=== PATIENT | male | born 1990 | race Caucasian/White ===

== ENCOUNTER 2021-02-07 20:33 | Emergency (ER) | payer OTHER, SELFPAY ==
[2021-02-07 20:40] VITALS: BP 135/88; PULSE 113; RESP 14; TEMP 37; O2SAT 96
[2021-02-07] MEDS: FAMOTIDINE 20 MG TABLET 40 MG PO (21:04)
[2021-02-07] MEDS: EPINEPHrine HCL INJ 1 MG/ML AMPUL 0.3 MG IM (21:04)
[2021-02-07] MEDS: diphenhydrAMINE HCl INJ 50 MG/ML VIAL IM (21:04)
[2021-02-07] MEDS: DEXAMETHASONE 4 MG TABLET 12 MG PO (21:04)
--- NOTE | 2021-02-07 21:38 | ED.SKABFB ---
HPI - Skin/Abscess/Foreign Bdy General Source: patient Mode of arrival: ambulatory Limitations: no limitations History of Present Illness HPI narrative: Patient comes in with urticaria rash all over his chest and back. This has been ongoing for the past 3 hours and associated with itching. He does not know what precipitated this as he has no known allergies. He has not taken any medications to attempt to clear this. Rash is small hives, all over chest and back mostly, but also on the extremities. Rash sould be rated as moderately severe, ongoing for the last 3 hours. Nothing at home, prior to arrival made this better or worse. Changing his shirt did not help. No other associated signs or symptoms. No other modifying factors MD complaint: rash Onset (ago): hour(s) Tetanus up to date: yes Location: generalized Severity: moderate Quality: pruritic Pain Consistency: constant Relieving factors: none Exacerbating factors: none Context: other (unknown cause) Associated symptoms: denies other symptoms Treatments prior to arrival: none Related Data Allergies Allergy/AdvReac Type Severity Reaction Status Date / Time No Known Allergies Allergy Verified 02/07/21 20:45 Review of Systems Constitutional: Constitutional: Reports no additional constitutional complaints Eyes: Eyes: Reports no additional eye complaints ENT: Reports system reviewed and no additional complaints, except as documented Cardiovascular: Cardiovascular: Reports no additional cardiovascular complaints Respiratory: Respiratory: Reports no additional respiratory complaints Gastrointestinal: Gastrointestinal: Reports no additional gastrointestinal complaints Genitourinary: Genitourinary: Reports no additional male genitourinary complaints Musculoskeletal: Musculoskeletal: Reports no additional musculoskeletal complaints Integumentary/Breasts: Skin/Breast: Reports system reviewed and no additional complaints, except as docu Neurologic: Reports system reviewed and no additional complaints, except as documented Psychiatric: Psychiatric: Reports no additional psychiatric complaints Endocrine: Endocrine: Reports no additional endocrine complaints Hematologic/Lymphatic: Hematologic/Lymphatic: Reports no additional hematologic/lymphatic complaints Allergic/Immunologic: Allergic/Immunologic: Reports no additional allergic/immunologic complaints PMFSH Past Medical History Medical History No significant medical problems Surgical History Surgical History (Updated 02/08/21 @ 03:07 by Edouard Garvey MD) No significant past surgical history Family History Family History Other No significant family history Social History Social History (Updated 02/08/21 @ 03:08 by Edouard Garvey MD) Smoking status: Never smoker Alcohol use details: rare minimal alcohol use Exam Const: General: no acute distress Orientation/consciousness: patient oriented x3 HENMT: Head: normal to inspection Ears: external ears normal General nose exam: Normal external nose present Mouth: Yes Normal oral and palatal mucosa present Throat: posterior oropharynx normal Eyes: Conjunctivae: conjunctivae normal Neck: Neck: normal visual inspection and no lymphadenopathy Chest: Other: Diffuse hives to chest and back, and to a lesser extent on extremities Resp: Effort & Inspection: normal respiratory effort Auscultation: clear to auscultation bilaterally Cardio: Rate: regular rate Rhythm: regular rhythm GI: GI Palp: Yes Soft to palpation (nontender) Back/Spine/Pelvis: Back: no CVA tenderness Skin: General skin exam: normal color Neuro: General: patient oriented x3 and moves all extremities Extrem: General: normal to inspection Psych: Appearance: grossly normal Mental Status: mental status grossly normal Thought content: Yes Normal thought content present
[2021-02-07 21:44] VITALS: PULSE 110; RESP 18; O2SAT 98
== END 2021-02-07 21:45 | disposition home or self-care (01) ==
PROVIDERS: Emergency Provider Emergency Medicine
DX: L50.9 Urticaria, unspecified (principal)
CPT/HCPCS: 96372; 99283; 99284; A9270; J0171; J1200; J8540

== ENCOUNTER 2021-10-15 18:19 | Emergency (ER) | payer OTHER, SELFPAY ==
[2021-10-15 18:36] VITALS: BP 134/80; PULSE 78; RESP 16; TEMP 37.5; O2SAT 100
--- NOTE | 2021-10-15 18:50 | ED.URI ---
HPI - URI/Sore Throat General Chief Complaint: Upper Respiratory Infection Stated Complaint: Fever/bodyaches/alberto Time Seen by Provider: 10/15/21 18:50 Source: patient and family History of Present Illness HPI Narrative: Patient presents with a 1 day history of fever body aches and headache. No shortness of breath and no chest pain. Patient states he has an appointment in the morning with [facility] in the [facility] for a PCR COVID-19 test. Patient requests a flu test and a strep test at this present. Patient reports normal appetite normal activity normally healthy individual. MD elicited complaint: fever, cough, sore throat and nasal congestion Related Data Allergies Allergy/AdvReac Type Severity Reaction Status Date / Time No Known Allergies Allergy Verified 02/07/21 20:45 Review of Systems Review of Systems: CONSTITUTIONAL: Denies chills, or sweats. Reports fever and generalized body aches EYES: Denies visual changes, redness, or discharge. ENT: Denies otalgia. Reports nasal congestion runny nose and sore throat CARDIOVASCULAR: Denies chest pain, palpitations, or edema. RESPIRATORY: Denies dyspnea. Reports occasional cough GASTROINTESTINAL: Denies abdominal pain, nausea, vomiting, or diarrhea. GENITOURINARY: Denies dysuria or hematuria. SKIN: Denies rash or itching. MUSCULOSKELETAL: Denies back pain, joint pain, or myalgia. Reports generalized body aches NEUROLOGIC: Denies headache, numbness, or weakness. PSYCHIATRIC: Denies anxiety or depression. PMFSH Past Medical History Medical History (Updated 10/15/21 @ 18:52 by KWAKU Bullock) No significant medical problems Surgical History Surgical History (Updated 02/08/21 @ 03:07 by Edouard Garvey MD) No significant past surgical history Family History Family History Other No significant family history Social History Social History (Updated 02/08/21 @ 03:08 by Edouard Garvey MD) Smoking status: Never smoker Alcohol use details: rare minimal alcohol use Comments At time of signature, agree with nursing past medical, surgical, social and family history. There is no relevant family history pertinent to the presenting complaint Exam Narrative: The patient is a well-developed, well-nourished in no acute distress. SKIN: Skin is warm and dry without erythema, swelling or exudate. There is good turgor. No tenting. HEAD: Atraumatic. Normocephalic. No temporal or scalp tenderness. EYES: Moist and bright. Sclera and conjunctivae normal. No discharge. PERRLA. Extraocular motions intact. Gross visual acuity intact. EARS: Pinna is normal shape and contour. Clear external auditory canals. TM pearly brandt with good cone of light, no erythema or suppuration. Bilateral cerumen noted no gross hearing deficit. NOSE: pink, moist mucosa with good air movement. Clear rhinorrhea without nasal flaring. Septum midline. Mouth: moist mucous membranes. THROAT; mild erythema noted to posterior oropharynx with moderate postnasal drainage. Without exudate or ulceration.. Uvula midline. Normal movement of soft palate. NECK: Supple and nontender with full range of motion without discomfort. No meningeal signs. LUNGS: Equal and bilateral breath sounds without wheezes, rales or rhonchi. CHEST: The chest wall is without retractions or use of accessory muscles. HEART: Has a regular rate and rhythm without murmur, gallops, click or rub. ABDOMEN: Soft, nontender with positive active bowel sounds. No rebound tenderness. EXTREMITIES: Without cyanosis, clubbing or edema. Equal 2+ distal pulses and 2 second capillary refill noted. NEUROLOGIC: alert, active, . The patient moves all extremities with normal muscle strength. Normal muscle tone is noted. Normal coordination is noted. NO focal neurological findings noted. Course Course Level of Care: Express Care Visit Vital Signs Vital signs: Vital Signs Temperature 37.5 C 10/04
== END 2021-10-15 19:13 | disposition home or self-care (01) ==
PROVIDERS: Emergency Provider Nurse Practitioner Family
DX: J06.9 Acute upper respiratory infection, unspecified (principal); B34.9 Viral infection, unspecified
CPT/HCPCS: 87804; 99213; G0463

== ENCOUNTER 2022-05-26 20:32 | Emergency (ER) | payer OTHER, SELFPAY ==
--- NOTE | ~2022-05-26 | XR_ITS ---
EXAM: XR hip RT min 2V DATE: 05/26/2022 21:16 HISTORY: RT hip pain NKI . COMPARISON: None available. FINDINGS: Normal mineralization. No fracture or dislocation. No lytic or blastic lesion. Joint space s are maintained. No erosion or periosteal change. Soft tissues within normal limits. IMPRESSION: No acute osseous finding in the right hip. Reviewed, dictated and finalized at location K.
[2022-05-26 20:35] VITALS: BP 138/87; PULSE 108; RESP 14; TEMP 38; O2SAT 97
--- NOTE | 2022-05-26 20:42 | ED.LOWEXIN ---
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 no history of trauma -- numbness and tingling radiating from the right lateral thigh down to cough and sometimes to the toes -- fever with a T-max of 103? -- sore throat H/O of IVDA many yrs ago. Onset (ago): day(s) ( started yesterday) Injury: Right: hip Severity: moderate Relieving factors: immobilization Exacerbating factors: movement Other symptoms: other ( fever, sore throat) Related Data Home Medications Medication Instructions Recorded Confirmed No Home Medications 05/26/22 05/26/22 Allergies Allergy/AdvReac Type Severity Reaction Status Date / Time No Known Allergies Allergy Verified 05/26/22 20:47 Review of Systems Review of Systems: All systems reviewed & are unremarkable except as noted in HPI and below Constitutional: Constitutional: Reports as per HPI, Reports no additional constitutional complaints and Reports fever(s) Eyes: Eyes: Reports as per HPI and Reports no additional eye complaints ENT: Reports system reviewed and no additional complaints, except as documented, Reports as per HPI and Reports sore throat Cardiovascular: Cardiovascular: Reports as per HPI and Reports no additional cardiovascular complaints Respiratory: Respiratory: Reports as per HPI and Reports no additional respiratory complaints Gastrointestinal: Gastrointestinal: Reports as per HPI and Reports no additional gastrointestinal complaints Genitourinary: Genitourinary: Reports no additional male genitourinary complaints Musculoskeletal: Musculoskeletal: Reports no additional musculoskeletal complaints and Reports as per HPI Comments: right hip pain Integumentary/Breasts: Skin/Breast: Reports system reviewed and no additional complaints, except as docu and Reports as per HPI Neurologic: Reports system reviewed and no additional complaints, except as documented and Reports as per HPI Psychiatric: Psychiatric: Reports no additional psychiatric complaints and Reports as per HPI Endocrine: Endocrine: Reports no additional endocrine complaints and Reports as per HPI Hematologic/Lymphatic: Hematologic/Lymphatic: Reports no additional hematologic/lymphatic complaints and Reports as per HPI Allergic/Immunologic: Allergic/Immunologic: Reports no additional allergic/immunologic complaints and Reports as per HPI [facility] Past Medical History Medical History No significant medical problems Surgical History Surgical History No significant past surgical history Family History Family History Other No significant family history Social History Social History Smoking status: Never smoker Alcohol use details: rare minimal alcohol use Exam Const: General: ill appearing Orientation/consciousness: patient oriented x3 Limitations: no limitations HENMT: Head: normal to inspection Ears: external ears normal General nose exam: Normal external nose present Face and sinus: normal facial exam Mouth: Yes Normal oral and palatal mucosa present Throat: posterior oropharynx normal Eyes: Conjunctivae: conjunctivae normal Pupils: Equal, round and reactive pupils present EOM: EOMs intact bilaterally Direct Ophthalmoscopy: no photophobia Neck: Neck: normal visual inspection, no lymphadenopathy and no meningeal signs Chest: Chest palpation & inspection: normal inspection of the chest Resp: Effort & Inspection: normal respiratory effort Auscultation: diminished lung sounds
[2022-05-26] MEDS: KETOROLAC 30 MG/ML VIAL (*BKC) IM (21:06)
[2022-05-26 21:30] LABS: Hematocrit 45.6 % (40.0-54.0); Hemoglobin 15.8 g/dL (14.0-18.0); Mean Corpuscular HGB Conc 34.6 g/dL (32.0-36.0); Mean Corpuscular Hemoglobin 31.4 pg (27.0-31.0); Mean Corpuscular Volume 90.7 fL (78.0-102.0); Mean Platelet Volume 9.1 fl (8.7-11.0); Platelet Count Result 338 K/mm3 (150-420); Red Blood Count 5.03 M/mm3 (4.70-6.10); Red Cell Distribution Width 12.3 % (11.6-14.4); White Blood Count 7.2 K/mm3 (4.8-10.8)
[2022-05-26 21:44] LABS: Prothrombin Time 11.3 Seconds (9.50-12.10)
[2022-05-26 21:48] LABS: Add Urine Microscopic? YES; Appearance Urine Clear (Clear); Bilirubin Urine Negative (Negative); Blood Urine Negative (Negative); Color Urine Light Yellow (Yellow); Glucose Urine UA Negative (Negative); Ketones Urine Negative (Negative); Leukocyte Esterase Ur Negative (Negative); Nitrate Urine Negative (Negative); Protein Urine Negative (Negative); Specific Grav Ur 1.015 (1.010-1.020); pH Urine 7.5 (5.0-8.0)
[2022-05-26 21:51] LABS: Lactic Acid Reflex 1.4 mmol/L (0.4-2.0)
[2022-05-26 21:53] LABS: Bacteria Urine Trace /hpf; RBC Urine 0-2 /hpf (0-2); WBC Urine 0-3 /hpf (0-3)
[2022-05-26 21:58] LABS: Strep Group A RT-PCR Negative (Negative)
[2022-05-26 21:58] LABS: Alanine Aminotransferase 194 U/L (16-63); Albumin Level 4.1 g/dL (3.4-5.0); Alkaline Phosphatase 96 U/L (46-116); Anion Gap 6 mmol/L (8-16); Aspartate Amino Transferase 60 U/L (15-37); Bilirubin,Total 0.4 mg/dL (0.00-1.00); Blood Urea Nitrogen 8 mg/dL (7-18); Calcium 8.8 mg/dL (8.5-10.1); Carbon Dioxide 28 mmol/L (21-32); Chloride 103 mmol/L (98-108); Estimated CRCL calculation 86 ml/min; Estimated Glomerular Filt Rate > 60; Glucose 103 mg/dL (70-99); Osmolality Calculated 282 mOsm/kg (285-295); Potassium 3.5 mmol/L (3.5-5.1); Sodium 137 mmol/L (136-145); Total Protein 7.6 g/dL (6.4-8.2)
[2022-05-26 21:59] LABS: Band Neutrophils Percent 0 % (0-6); Basophils Absolute Manual 0.07 K/mm3 (0-0.1); Basophils Percent Manual 1 % (0-1); Eosinophils Percent Manual 0 % (1-6); Lymphocytes Absolute Manual 2.23 K/mm3 (1.1-4.5); Lymphocytes Percent Manual 31 % (18-44); Monocytes Absolute Manual 0.72 K/mm3 (0.1-0.90); Monocytes Percent Manual 10 % (3-9); Neutrophils Absolute Manual 4.17 K/mm3 (1.3-6.7); Neutrophils Percent Manual 58 % (46-73); Platelet Estimate Adequate (Adequate); Total Cells Counted 100
[2022-05-26 22:08] LABS: SARS-CoV-2 RNA PCR Positive (Negative)
[2022-05-26 22:25] VITALS: BP 123/59; PULSE 100; RESP 16; TEMP 36.9; O2SAT 100
== END 2022-05-26 22:35 | disposition home or self-care (01) ==
PROVIDERS: Emergency Provider Internal Medicine Critical Care Medicine
DX: U07.1 COVID-19 (principal); M25.551 Pain in right hip
CPT/HCPCS: 73502; 80053; 81001; 83605; 85025; 85610; 87651; 96372; 99283; C9803; J1885; U0003; U0005

== ENCOUNTER 2023-06-30 03:02 | Emergency (ER) | payer OTHER, SELFPAY ==
--- NOTE | ~2023-06-30 | CT_ITS ---
EXAMINATION: CT abdomen pelvis w con DATE: 06/30/2023 04:12 INDICATION: Low abdominal pain. Nausea. TECHNIQUE: Computed tomography (CT) of the abdomen and pelvis was performed with 100 mL Omnipaque 350 intravenous contrast. Automated exposure control and iterative reconstruction technique were employe d. The dose-length product was 314.37 mGy-cm. COMPARISON: None. FINDINGS: The visualized portions of the lung bases are clear without pneumonia or pleural effusion. The heart size is normal. No pericardial effusion. The liver, gallbladder, spleen, pancreas, adrenal glands, and left kidney are normal. There is a 5 mm cyst in right kidney. There are no dilated loops of bowel. The appendix is normal. There is prominent fat in the inguinal canals that may be hernias. There are no pathologically enlarged lymph nodes. There is no free intraperitoneal fluid. There is mi ld lumbar spondylosis. IMPRESSION: 1. Prominent fat in the inguinal canals that may be hernias. Reviewed, dictated and finalized at location E.
[2023-06-30 03:02] VITALS: BP 159/117; PULSE 57; RESP 10; TEMP 36.8; O2SAT 100
--- NOTE | 2023-06-30 03:19 | ED.ABDPAIN ---
HPI - Abdominal Pain General Chief Complaint: Abdominal Pain Stated Complaint: stomach pain Time Seen by Provider: 06/30/23 03:19 History of Present Illness HPI narrative: Patient is a 33 year old male with no PMH here with abdominal pain. He notes that the abdominal pain has been present for 2 days. The pain is located near the umbilicus and to the left side, aching in nature, currently 7/10. He notes that he has been taking ibuprofen for pain at home, last dose at 1999, with some relief of symptoms. The pain woke him up twice from sleep tonight so he came in to get evaluated. He has had some associated nausea, no vomiting. No fever or chills. He notes that he has had similar pain to this once in the past, during the pandemic, and he did not get seen for it and it eventually went away on its own. He notes a very small bowel movement just prior to coming in. No blood in his stool. No urinary changes. No prior abdominal surgeries. Last PO intake was some water just prior to coming into the ED. No cough, congestion, shortness of breath. Related Data Allergies Allergy/AdvReac Type Severity Reaction Status Date / Time No Known Allergies Allergy Verified 05/26/22 20:47 Review of Systems Review of Systems: CONSTITUTIONAL: Denies fever, chills, or sweats. EYES: Denies visual changes, redness, or discharge. ENT: Denies rhinorrhea, congestion, sore throat, or otalgia. CARDIOVASCULAR: Denies chest pain, palpitations, or edema. RESPIRATORY: Denies cough or dyspnea. GASTROINTESTINAL: abdominal pain, nausea and constipation, no vomiting or diarrhea. GENITOURINARY: Denies dysuria or hematuria. SKIN: Denies rash or itching. MUSCULOSKELETAL: Denies back pain, joint pain, or myalgia. NEUROLOGIC: Denies headache, numbness, or weakness. [facility] Past Medical History Medical History No significant medical problems Surgical History Surgical History No significant past surgical history Family History Family History Other No significant family history Social History Social History Smoking status: Never smoker Alcohol use details: rare minimal alcohol use Exam Narrative: GENERAL: Well-appearing, well-nourished, and in no acute distress. HEAD: Normocephalic, atraumatic. EYES: PERRLA and EOMI. ENT: Nares clear. Mucous membranes moist. NECK: Supple. CHEST: Clear to auscultation. No respiratory distress. HEART: Regular rate and rhythm. Normal peripheral pulses. ABDOMEN: Soft, tender in the periumbilical area and LLQ, nondistended, no rebound or guarding, no CVA tenderness. EXTREMITIES: Normal range of motion. No edema. SKIN: Warm, dry, no rash. NEURO: No focal deficits. Alert and oriented x3. PSYCH: Normal mood and affect. Course Course Emergency Course: Chart review performed. He has had 3 prior ED visits in the past. Triage vitals show HTN, otherwise normal. Patient seen and evaluated, in no acute distress. He is here with abdominal pain. Differentials include but not limited to constipation, diverticulitis, UTI, renal colic, less likely SBO given lack of prior surgeries or appendicitis given location of pain. Patient notes he should be able to find a ride home, will do morphine, zofran, IVF, basic abdominal lab work, UA, CT abdomen pelvis. He is advised to remain NPO while we await results. Lab work reviewed. CBC unremarkable. Electrolytes normal. Normal renal function. Mild elevation of ALT, this seems to be improved from labs 1 year ago. Lipase normal. Pending urine and CT. UA negative for UTI or blood. Pending CT read. CT essentially read as normal. Patient reevalauted. Some pain returning but nothing to the severity it was. Put in for dose of toradol. Advise close follow up with PCP. May take jammie
[2023-06-30 03:34] LABS: Basophils Absolute Auto 0.08 K/mm3 (0.00-0.10); Basophils Percent Auto 0.9 % (0.0-1.0); Eosinophils Absolute Auto 0.44 K/mm3 (0.02-0.50); Hematocrit 49.2 % (40.0-54.0); Hemoglobin 16.9 g/dL (14.0-18.0); Immature Granulocyte Absolute 0.02 K/mm3 (0.00-0.00); Immature Granulocyte Percent A 0.2 % (0.0-0.0); Lymphocytes Absolute Auto 2.52 K/mm3 (1.10-4.50); Lymphocytes Percent Auto 28.8 % (18.0-42.0); Mean Corpuscular HGB Conc 34.3 g/dL (32.0-36.0); Mean Corpuscular Hemoglobin 31.2 pg (27.0-31.0); Mean Corpuscular Volume 90.9 fL (78.0-102.0); Mean Platelet Volume 9.4 fl (8.7-11.0); Monocytes Absolute Auto 0.82 K/mm3 (0.10-0.90); Monocytes Percent Auto 9.4 % (2.0-11.0); Neutrophils Absolute Auto 4.9 K/mm3 (1.7-7.2); Neutrophils Percent Auto 55.7 % (50.0-70.0); Platelet Count Result 366 K/mm3 (150-420); Red Blood Count 5.41 M/mm3 (4.70-6.10); Red Cell Distribution Width 11.9 % (11.6-14.4); White Blood Count 8.8 K/mm3 (4.8-10.8)
[2023-06-30] MEDS: PANTOPRAZOLE SODIUM IV 40 MG VIAL IV PUSH (03:37)
[2023-06-30] MEDS: ONDANSETRON INJ 4 MG/2 ML VIAL IV PUSH (03:38)
[2023-06-30 03:40] VITALS: BP 138/100; PULSE 68; RESP 18; O2SAT 96
[2023-06-30] MEDS: MORPHINE SULFATE (*CRX) 4 MG/ML INJ IV PUSH (03:40)
[2023-06-30] MEDS: SODIUM CHLORIDE 0.9% IV 1,000 ML 999 ML IV CONT (03:42)
[2023-06-30 03:49] LABS: Alanine Aminotransferase 124 U/L (16-63); Albumin Level 4.2 g/dL (3.4-5.0); Alkaline Phosphatase 93 U/L (46-116); Anion Gap 11 mmol/L (8-16); Aspartate Amino Transferase 32 U/L (15-37); Bilirubin,Total 0.7 mg/dL (0.00-1.00); Blood Urea Nitrogen 15 mg/dL (7-18); Calcium 9.3 mg/dL (8.5-10.1); Carbon Dioxide 26 mmol/L (21-32); Chloride 101 mmol/L (98-108); Estimated CRCL calculation 96 ml/min; Estimated Glomerular Filt Rate > 60; Glucose 127 mg/dL (70-99); INR 1.1; Lipase 30 U/L (16-77); Osmolality Calculated 288 mOsm/kg (285-295); Partial Thromboplastin Time 27.3 SEC (23.90-30.70); Potassium 3.8 mmol/L (3.5-5.1); Prothrombin Time 11.5 Seconds (9.50-12.10); Sodium 138 mmol/L (136-145); Total Protein 7.8 g/dL (6.4-8.2)
--- NOTE | 2023-06-30 03:57 | PC.NURSE ---
0357-PT TRANSPORTED VIA HOSPITAL WHEELCHAIR, TO IMAGING, ESCORTED BY [employer].
--- NOTE | 2023-06-30 04:06 | PC.NURSE ---
0406-PT RETURNS FROM IMAGING, VIA HOSPITAL WHEELCHAIR, ESCORTED BY [employer].
[2023-06-30 04:09] VITALS: BP 137/93; PULSE 61; RESP 16; O2SAT 96
[2023-06-30 04:35] LABS: Appearance Urine Clear (Clear); Bilirubin Urine Negative (Negative); Blood Urine Negative (Negative); Color Urine Light Yellow (Yellow); Glucose Urine UA Negative (Negative); Ketones Urine Negative (Negative); Leukocyte Esterase Ur Negative LEU/UL (Negative); Nitrate Urine Negative (Negative); Protein Urine Negative (Negative); Specific Grav Ur <= 1.005 (1.010-1.020)
[2023-06-30 04:36] LABS: Add Urine Microscopic? NO
[2023-06-30] MEDS: KETOROLAC 15 MG/ML VIAL (*BKC) IV PUSH (04:52)
--- NOTE | 2023-06-30 05:04 | PC.NURSE ---
0450-PT CONTACTING SPOUSE TO TRANSPORT HOME, DUE TO OPIOID ADMINISTRATION. PT STATES SPOUSE COMING TO PICK HIM UP. PHYSICIAN MADE AWARE.
[2023-06-30 05:05] VITALS: BP 134/99; PULSE 62; RESP 16; O2SAT 98
== END 2023-06-30 05:06 | disposition home or self-care (01) ==
PROVIDERS: Emergency Provider Student in an Organized Health Care Education/Training Program
DX: R10.30 Lower abdominal pain, unspecified (principal)
CPT/HCPCS: 36415; 74177; 80053; 81003; 83690; 85025; 85610; 85730; 96361; 96374; 96375; 99284; C9113; J1885; J2270; J2405; J7030; Q9967

== ENCOUNTER 2023-08-14 11:30 | Emergency (ER) | payer OTHER, SELFPAY ==
--- NOTE | ~2023-08-14 | XR_ITS ---
EXAMINATION: XR foot RT 2V DATE: 08/14/2023 12:08 INDICATION: Right fifth toe injury TECHNIQUE: 3 views of right foot were obtained. COMPARISON: None. FINDINGS: There is fusion of fifth middle and distal phalanges. There is a nondisplaced comminuted fr acture of the fusion mass with involvement of the proximal articular surface. 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 IMPRESSION: 1. Comminuted fracture of the fusion mass of the fifth middle and distal phalanges. Reviewed, dictated and finalized at location A. [employer] IMPRESSION: 1. Comminuted fracture of the fusion mass of the fifth middle and distal phalan ges.
[2023-08-14 11:42] VITALS: BP 135/90; PULSE 112; RESP 18; TEMP 37; O2SAT 98
[2023-08-14] MEDS: KETOROLAC (*BKC) 60 MG/2 ML VIAL IM (12:04)
--- NOTE | 2023-08-14 12:26 | ED.GENADULT ---
HPI - General Adult General Chief complaint: Unspecified Stated complaint: stub toe Time Seen by Provider: 08/14/23 11:46 Source: patient Mode of arrival: ambulatory Limitations: no limitations History of Present Illness HPI narrative: This is a 33-year-old male that presents with bruised and tender right 5th toe distal end with pain with movement and swelling and pain with palpation, occurred earlier this morning when he was climbing a ladder and hit his right 5th toe. Onset (ago): hour(s) Location: right and lower extremity Related Data Allergies Allergy/AdvReac Type Severity Reaction Status Date / Time No Known Allergies Allergy Verified 07/13/23 07:24 Review of Systems Review of Systems: All systems reviewed & are unremarkable except as noted in HPI and below PMFSH Past Medical History Medical History No significant medical problems Surgical History Surgical History No significant past surgical history Family History Family History Other No significant family history Social History Social History Smoking status: Never smoker Alcohol use details: rare minimal alcohol use Exam Const: General: cooperative, healthy appearing and comfortable Resp: Effort & Inspection: normal respiratory effort and able to speak in complete sentences Auscultation: clear to auscultation bilaterally Cardio: Palpation: normal PMI Rate: regular rate GI: Inspection: normal to inspection Skin: Other: Bruising right 5th toe with some mild swelling with decreased range motion secondary to pain Neuro: General: oriented to person and oriented to place Extrem: Ankle/foot/toe images: 1. bruising and swelling right 5th toe Course Course Emergency Course: patient had x-ray performed which shows a comminuted nondisplaced fracture of the distal 5th toe, patient received a shot of 60mg IM Toradol mildly improved his pain, otherwise patient is doing well and will evan-tape and use the postop shoe. Vital Signs Vital signs: Vital Signs Temperature 37.0 C 08/14/23 11:42 Pulse Rate 112 H 08/14/23 11:42 Respiratory Rate 18 08/14/23 11:42 Blood Pressure 135/90 08/14/23 11:42 Pulse Oximetry 98 08/14/23 11:42 Oxygen Delivery Room Air 08/14/23 11:42 Temperature 37.0 C 08/14/23 11:42 Pulse Rate 112 H 08/14/23 11:42 Respiratory Rate 18 08/14/23 11:42 Blood Pressure 135/90 08/14/23 11:42 Pulse Oximetry 98 08/14/23 11:42 Oxygen Delivery Room Air 08/14/23 11:42 Medical Decision Making Vital Signs Vital Signs: Vital Signs Temperature 37.0 C 08/14/23 11:42 Pulse Rate 112 H 08/14/23 11:42 Respiratory Rate 18 08/14/23 11:42 Blood Pressure 135/90 08/14/23 11:42 Pulse Oximetry 98 08/14/23 11:42 Oxygen Delivery Room Air 08/14/23 11:42 Temperature 37.0 C 08/14/23 11:42 Pulse Rate 112 H 08/14/23 11:42 Respiratory Rate 18 08/14/23 11:42 Blood Pressure 135/90 08/14/23 11:42 Pulse Oximetry 98 08/14/23 11:42 Oxygen Delivery Room Air 08/14/23 11:42 Critical Care Time Critical Care Time Critical Care Time: No Discharge Plan Discharge Clinical Impression: Closed fracture of toe Qualifiers: Encounter type: initial encounter Toe: lesser toe Phalanx: distal Physeal involvement: unspecified Laterality: right Qualified Code(s): S92.531A - Displaced fracture of distal phalanx of right lesser toe(s), initial encounter for closed fracture Patient Disposition: Home, Self-Care Condition: Stable Instructions: Antibiotic Form Additional Instructions: can take Tylenol or Motrin, and follow up with some primary within 1 to 2 weeks further evaluation treatment. Prescriptions: No Action ondansetron 4 mg t
[2023-08-14 12:42] VITALS: BP 124/86; PULSE 72; RESP 18; TEMP 36.7; O2SAT 98
--- NOTE | 2023-08-14 13:03 | PC.NURSE ---
On 08/14/23, the student, [norma gómez ], provided care and completed [facility] documentation on this patient. I have reviewed the student's documentation and agree with the findings.
== END 2023-08-14 12:45 | disposition home or self-care (01) ==
PROVIDERS: Emergency Provider Emergency Medicine; PCP Family Medicine
DX: S92.531A Displaced fracture of distal phalanx of right lesser toe(s), initial encounter for closed fracture (principal); S92.521A Displaced fracture of middle phalanx of right lesser toe(s), initial encounter for closed fracture; W22.09XA Striking against other stationary object, initial encounter; Z98.1 Arthrodesis status
CPT/HCPCS: 73620; 96372; 99284; J1885

== ENCOUNTER 2023-08-19 10:53 | Outpatient (CLI) | payer OTHER, SELFPAY ==
--- NOTE | ~2023-08-19 | XR_ITS ---
AP, oblique, and lateral views of the right fifth toe CLINICAL HISTORY: Injury FINDINGS: Possible nondisplaced fracture involving the fused fifth middle and distal phalanges. No ot her fracture or dislocation seen. Joint spaces are preserved. IMPRESSION: Possible nondisplaced fracture involving the fused fifth middle and distal phalanges, as seen on prio r exam. Reviewed, dictated and finalized at location . R LINER IMPRESSION: Possible nondisplaced fracture involving the fused fifth middle and distal phal anges, as seen on prior exam.
== END 2023-08-19 10:54 | disposition home or self-care (01) ==
LOC: CHSIMG 10:54
PROVIDERS: PCP Family Medicine; Visit Provider Family Medicine
DX: S92.919A Unspecified fracture of unspecified toe(s), initial encounter for closed fracture (principal)
CPT/HCPCS: 73660